=== PATIENT | male | born 1950 | race Caucasian/White ===

== ENCOUNTER 2025-04-04 07:02 | Day surgery (SDC) | payer MEDICARE, OTHER, SELFPAY ==
[2025-04-04 07:51] LABS: Glucose - Point of Care 159 mg/dl (70-99)
--- NOTE | 2025-04-04 09:17 | ITS.CL.CARDI ---
Addendum entered and electronically signed by Nicole Reyna MD 04/04/25 11:20:
Date of Procedure: 04/04/2025
Procedure: Cardioversion
Indication: Symptomatic atrial fibrillation
Performing Physician: Nicole Reyna MD
Technique: The patient was brought to the holding area. Signed informed consent was obtained. A time out was called and performed. The patient was anesthetized by the anesthesia service. Anticoagulation status was reviewed and appropriate. R2 pads
were placed anteriorly and posteriorly. A (360) J synchronized biphasic shock restored normal sinus rhythm without significant bradycardia. There were no complications.
Conclusion: Uncomplicated cardioversion from atrial fibrillation to sinus rhythm.
Recommendation: Routine post cardioversion care. Continue watermelon harvesting supervisor anticoagulation.
Original Note:
Certified Alcohol Counselor - Cardioversion
Cardioversion
Procedure Report:
Date of Procedure:
Procedure: Cardioversion
Indication: Symptomatic atrial fibrillation
Performing Physician: Nicole Reyna MD
Technique: The patient was brought to the holding area. Signed informed consent was obtained. A time out was called and performed. The patient was anesthetized by the anesthesia service. Anticoagulation status was reviewed and appropriate. R2 pads
were placed anteriorly and posteriorly. A (360) J synchronized biphasic shock restored normal sinus rhythm without significant bradycardia. There were no complications.
Conclusion: Uncomplicated cardioversion from atrial fibrillation to sinus rhythm.
Recommendation: Routine post cardioversion care. Continue long-term anticoagulation.
[2025-04-04 09:39] VITALS: BMI 21.7
== END 2025-04-04 08:57 | disposition home or self-care (01) ==
LOC: CATH 07:02
PROVIDERS: ATTENDING PHYSICIAN Internal Medicine Cardiovascular Disease; FAMILY PHYSICIAN Family Medicine
DX: I48.91 Unspecified atrial fibrillation (principal); Z79.01 Long term (current) use of anticoagulants; I10 Essential (primary) hypertension; E11.9 Type 2 diabetes mellitus without complications
CPT/HCPCS: 82962; 92960; 93005

== ENCOUNTER 2025-04-18 09:19 | Day surgery (SDC) | payer MEDICARE, OTHER, SELFPAY ==
--- NOTE | 2025-04-11 16:25 | ITS.CL.CARDI ---
Talent Development Coordinator - Cardioversion
Cardioversion
Procedure Report:
Cardioversion Note
Sedation: per anesthesia
Procedure: Successful synchronized biphasic cardioversion with 200 Joules to NSR.
Patient was positively identified, and procedure time was taken. Informed consent obtained. Correct patient position. Relevant images and results reviewed prior to procedure. Patient history and medications reviewed. Agreement to proceed.
Pre-op Diagnosis: Atrial Fibrillation
Post-op Diagnosis: Same
Patient was taken to the recovery area in stable condition. No complications and tolerated well.
== END 2025-04-18 11:23 | disposition home or self-care (01) ==
LOC: CATH 09:19
PROVIDERS: ATTENDING PHYSICIAN Internal Medicine Interventional Cardiology; FAMILY PHYSICIAN Family Medicine; OTHER PHYSICIAN Internal Medicine Cardiovascular Disease
DX: I48.91 Unspecified atrial fibrillation (principal); Z79.84 Long term (current) use of oral hypoglycemic drugs; Z79.01 Long term (current) use of anticoagulants
CPT/HCPCS: 92960; 93005